=== PATIENT | male | born 1950 | race Caucasian/White ===

== ENCOUNTER 2016-12-17 11:00 | Inpatient (IN) | payer MEDICARE, OTHER ==
[~2016-12-17] VITALS: Ht 180.3 cm; Wt 84.7 kg
--- NOTE | ~2016-12-17 | DS ---
PATIENT'S NAME: BAMBI LIN [facility] AGE: 66 Y [address] ROOM: [address] [address] LOCATION: [facility] ADMIT DATE: 12/18/2016 Discharge Summary DISCHARGE DATE: 12/21/2016 FAMILY PHYSICIAN: Linda Alatorre MD ATTENDING PHYSICIAN: Malorie Barber REASON FOR ADMISSION: The patient was a scheduled admission for an elective procedure. The patient had metastatic tumors to the brain including a lesion in the right cerebellum. The lesion was causing him unsteadiness and he had had a couple of falls recently. He was admitted electively for resection of this right cerebellar tumor. TREATMENT RENDERED: The patient was taken to the operating room on December 18, 2016, he underwent a right suboccipital craniotomy and resection of right cerebellar tumor. His procedure was uncomplicated. His recovery was very gratifying. His walking improved and it became steady on his feet. His incision was healing satisfactorily. By the 21 of December, the patient had met all requirements for dismissal. He was discharged home on that date with arrangements made to follow up at my clinic in [place]. He is also going to follow up with his oncologist regarding the other lesions in his brain. 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 MD OMAR MCCOYO/seferinol /[id number] d: 12/24/16 1305 t: 12/25/16 0023, DISCHARGE SUMMARY
--- NOTE | ~2016-12-17 | OR ---
PATIENT'S NAME: BAMBI LIN [facility] AGE: 66 Y [address] ROOM: [address] [address] LOCATION: [facility] ADMIT DATE: 12/18/2016 OR/Procedure Report DISCHARGE DATE: FAMILY PHYSICIAN: Linda Alatorre MD ATTENDING PHYSICIAN: Malorie Ferrer SURGEON: Malorie Ferrer MD AIR VALVE REPAIRER: Tanna Adorno and Mr. Rajesh hCen, medical student. DATE OF PROCEDURE: 12/18/2016 PREOPERATIVE DIAGNOSIS: Metastatic tumors to brain. POSTOPERATIVE DIAGNOSIS: Metastatic tumors to brain. PROCEDURES PERFORMED: 1. Right suboccipital craniotomy for resection of right cerebellar metastatic tumor. 2. Use of frameless stereotactic stealth system. 3. Use of intraoperative ultrasound. 4. DuraGen duraplasty larger than 5 cm. ANESTHESIA: General. ANESTHESIA PROVIDER: Adin Painting MD. HISTORY: This patient is a 66-year-old male with known esophageal cancer. The patient presented with frequent falls and unsteadiness. MRI scan showed 3 metastatic tumors to the brain in the right cerebellum, right occipital area, and left frontal area. The cerebellar metastatic tumor was felt to be the main cause of the patient's symptoms. The patient was treated with Decadron and showed some improvement. Surgery was recommended to resect the tumor. The procedure, benefits, and risks were discussed with the patient and his and with their consent, the patient was brought to the operating room for surgery. PROCEDURE IN DETAIL: In the operating room, the patient was placed in a supine position, anesthesia was induced, he was intubated. His head was secured in a 3-pin [employer] import coordination and production head and he was turned to a prone position. The Stealth frameless stereotactic system was used to localize the surface markings of the tumor. The hair around this area was clipped. The incision line was marked out in the right paramedian suboccipital area. It was a linear incision. The whole area was then prepped and draped in a sterile fashion. Local anesthesia was infiltrated along the incision line. A #10 blade was used to open the incision and deepened it to the fascial layer. Bovie was then used to strip the periosteum from the suboccipital area. PATIENT'S NAME: BAMBI LIN [facility] AGE: 66 Y [address] ROOM: [id number] [place], [place] [address] LOCATION: [facility] ADMIT DATE: 12/18/2016 OR/Procedure Report DISCHARGE DATE: FAMILY PHYSICIAN: Linda Alatorre MD ATTENDING PHYSICIAN: Malorie Ferrer Hemostasis was achieved. Retractors were placed. Again, the frameless stereotactic system was used to localize the site of the tumor. A bur hole was made. We were careful not to make the bur hole directly over the transverse sinus or the confluence of sinuses, which were all in the area. Working very carefully, another bur hole was made. A 3rd bur hole was made close to the torcula. All 3 bur holes were then connected after the dura had been from the overlying bone. The bone flap was removed. It was necessary to remove a little bit more bone to achieve adequate exposure. At this time, the ultrasound was brought in and the ultrasound was used to localize the shortest trajectory to the tumor. The dura was then opened in a horseshoe-shaped fashion with the dural base along the right transverse sinus. The dura was packed back. The brain was bulging slightly, and the patient received mannitol, the head of his bed was elevated, and the brain started to slacken a little bit. The ultrasound was again used to confirm the position of the tumor. The cerebellar cortex was then opened along the cerebellar folia. After a short dissection, the tumor became visible. It was a pinkish firm mass. It fairly easily from the cerebellum. We were able to work around the periphery of the tumor and deliver it in one piece to pathology for both frozen and permanent sections. The frozen section came back confirming malignancy, pending further characterization. Attention was then directed to hemostasis and the hemostasis in the tumor bed was carried out with bipolar, Surgicel, and cottonoids. After satisfactory hemostasis was achieved, the dura was closed with Nurolon. The bone flap was then pieced together and reattached to the edge of the craniotomy. Prior to placing the bone flap, a piece of DuraGen was used to cover the area where the dura had been opened for the tumor resection. The bone flap was replaced with miniplates and screws. The incision was then closed in layers using appropriate suture materials. A sterile dressing was applied. The patient's head was taken out of the [place] import coordination and production head. He was rolled back to supine position. His anesthesia was reversed. He was extubated and taken to the recovery room to complete his recovery. I was present at and performed every aspect of this procedure, assisted at different times by operating room personnel. There were no apparent intraoperative complications. Swabs, needles, and instruments were all accounted for at the end of the case. Estimated blood loss was less than 200 mL, and there was no reason for blood transfusion. I expect the patient's PATIENT'S NAME: BAMBI LIN [facility] AGE: 66 Y [address] ROOM: [place] [address] LOCATION: [facility] ADMIT DATE: 12/18/2016 OR/Procedure Report DISCHARGE DATE: FAMILY PHYSICIAN: Linda Alatorre MD ATTENDING PHYSICIAN: Malorie Ferrer unsteadiness to improve after this procedure. He will probably still need radiation therapy for the other metastatic deposits to his brain. MALORIE FERRER MD CNO/modl /[id number] CC: Linda Alatorre MD d: 12/19/16 2155 t: 12/22/164, OPERATIVE SUMMARY
[~2016-12-17 11:00] MED LIST changes: -NORCO 5-325 TA1 EACH PO
--- NOTE | 2016-12-18 16:23 | NUR ---
Significant Event: Patient alert and oriented x3. Pupils 3mm, brisk. Grasps strong and equal. R) leg weak on dorsiflexion and plantar flexion. Elevate HOB 30 degrees. VSS, on 3L O2. Pedraza patent and draining yellow urine. Drsg to posterior head. Pin sites to both sides of head. L) port in place, not accessed. IV to R) hand, saline locked. IV to R) FA infusing NS at 75 mL/hr. R) art line in place. Morphine given for headache with relief noted. Follow up: NPO.
--- NOTE | 2016-12-19 05:17 | NUR ---
Significant Event: Pt is alert and orinted x3. Pupils are equal and reactive. Moves all extremities spontaneously and to command. States that he does have some dullness of sensation to his feet. Surgical site to the back of his head has a small amount of bloody drainage. Neuro checks Q1HR. To keep SBP below 160, no PRN medications given this shift. Pt on RA. Bowel sounds are active, no BM this shift. Pedraza cath in place with good urine oupt. [address] L) radial ART rajesh in place. Follow up: Continue to monitor
--- NOTE | 2016-12-19 12:15 | NUR ---
Came by to see Benjie but he was sleeping and asked that I come back later. Will try to come back later today or next week and see Benjie. From reviewing his chart, it appears that he lives in [place] with Yumiko. There is no PCP listed on his sheet so I will talk with him about this next time I see him. Will also ask him about DME/HHC needs as well. CM to continue to follow and assist.
--- NOTE | 2016-12-19 16:44 | NUR ---
Significant Event: Patient alert and oriented x3. Drowsy at times. Pupils 3mm, brisk. R) leg slightly weaker but improving. Neuro checks q 4 hours. Elevate HOB 30 degrees. VSS, on room air. Orders to keep SBP <160, PRN hydralazine if needed. Pedraza patent and draining yellow urine. Nauseous at times, zofran given. Drsg to posterior head, slight drainage noted. Pin sites to bilateral sides of head, R) sided pin site swollen, open to air. Art line dc'd to R) wrist. Morphine given for pain. L) port present, but not accessed. IV to R) hand, saline locked. IV to R) FA infusing NS at 75 mL/hr. Follow up: [place] ICU status.
--- NOTE | 2016-12-20 04:05 | NUR ---
Significant Event: Pt is alert and orineted x3. Moves all extremities spontaneously and to command. Pupils are equal and reactive. No complaints of headache this shift. Dressing to the back of head has a small amount of bloody drainage. BP and HR have been stable. On RA. Bowel sounds are hypoactive, no BM this shift. Pedraza cath in place with good urine output. PIV's in place. Follow up: Pedraza to be removed this AM
--- NOTE | 2016-12-20 14:34 | NUR ---
Significant Event:A/O X 3. Ambulating in [place] with gait belt and walker, "farther than yesterday". SB at times, lowest HR is 49 when sleeping. Tolerating PO fluids and nutrition, colace started. Voided at 1145 after caruso removed this AM. Dressing on back of head. Numbness and tingling in LE's. right toes weaker than the left. NS infusing at 75 ml/h. Family is updated at the bedside. Follow up:CT of head without contrast in AM, then probably DC.
--- NOTE | 2016-12-21 04:38 | NUR ---
Significant Event: Patient is A/O x3, pleasant et cooperative. Follows commands in all extremeties. RLE slightly weaker than left. Pupils equal et reactive. NSR, becomes tevin at times while sleeping. LS clear, O2 >90% on RA. Voids sufficient amounts per toilet. R) hand PIV SL, patent, dressing CDI. Incision to occiput with dressing CDI. SBA with FWW et GB to transfer, gait steady. Follow up: CT without contrast this AM then possible DC home.
[2016-12-21 07:01] LABS: CREATININE 0.7 mg/dL (0.6-1.3)
[2016-12-21] MEDS ORDERED: NORCO 5-325 TA1 EACH PO (13:42)
--- NOTE | 2017-01-06 15:37 | NUR ---
Post hospitalization follow up call made to patient. Patient reports that he is feeling "pretty good". Has made and kept his follow up appointments. Has no questions concerning his medications. Is receiving radiation therapy in [place], [place]. [place] that his hospital stay was "very good" and he was "well taken care of"
== END 2016-12-21 14:06 | disposition disaster alternative care site (69) | DRG 26 ==
LOC: GNTU 12-18 05:46 → GICU 12-18 05:46
PROVIDERS: ADMIT Neurological Surgery
PROC: 00BC0ZX Excision of Cerebellum, Open Approach, Diagnostic (ICD-10-PCS; principal; 2016-12-18)
DX: C79.31 Secondary malignant neoplasm of brain (principal); C15.9 Malignant neoplasm of esophagus, unspecified; F17.200 Nicotine dependence, unspecified, uncomplicated; Z91.81 History of falling; Z95.828 Presence of other vascular implants and grafts
CPT/HCPCS: C1713; C1763; J0690; J1100; J2001; J2250; J2270; J2405; J7030; Q9967

== ENCOUNTER → 2016-12-17 | Outpatient (CLI) | payer MEDICARE, OTHER ==
[~2016-12-17] MED LIST: ASCORBIC ACID500 MG PO; CYMBALTA30 MG PO; DECADRON4 MG PO; FEOSOL325 MG PO; KEPPRA500 MG PO; LIPITOR40 MG PO; MILK THISTLE PO; NEURONTIN100 MG PO; NEURONTIN300 MG PO; NEURONTIN600 MG PO; NORCO 5-325 TA1 EACH PO; PROBIOTIC1 EAC1 PO; PROTONIX40 MG PO; REGLAN10 MG PO; VALTREX500 MG PO; VOLTAREN75 MG PO; ZINC CHELATED50 MG PO
== END | disposition disaster alternative care site (69) ==
LOC: GRAD 16:30
DX: Z01.818 Encounter for other preprocedural examination (principal); D49.6 Neoplasm of unspecified behavior of brain

== ENCOUNTER → 2016-12-17 | Outpatient (CLI) | payer MEDICARE, OTHER ==
[2016-12-17 15:52] LABS: INR - (THERAPEUTIC) 1.15 (0.92-1.07); PROTIME 12.1 SECONDS (9.8-11.4)
== END | disposition disaster alternative care site (69) ==
LOC: LGSMG 15:28
PROVIDERS: Neurological Surgery
DX: C79.9 Secondary malignant neoplasm of unspecified site (principal); R79.1 Abnormal coagulation profile; N19 Unspecified kidney failure